=== PATIENT | female | born 1955 | race Caucasian/White ===

== ENCOUNTER → 2017-07-30 | Outpatient (CLI) | payer OTHER | END | disposition home or self-care (01) | LOC: US 06:36 | DX: R10.11 Right upper quadrant pain (principal); R25.2 Cramp and spasm; R11.0 Nausea | CPT/HCPCS: 76705 ==

== ENCOUNTER → 2017-08-10 | Outpatient (CLI) | payer OTHER ==
[2017-08-10] MEDS: SINCALIDE IV (10:56)
[2017-08-10] MEDS: NORMAL SALINE IV (10:56)
== END | disposition home or self-care (01) ==
LOC: NM 08:07
DX: R10.11 Right upper quadrant pain (principal); R42 Dizziness and giddiness; R11.0 Nausea
CPT/HCPCS: 78226; 96374; 96375; A9537; J2805

== ENCOUNTER → 2018-02-14 | Day surgery (SDC) | payer OTHER ==
[~2018-02-14] MED LIST: ALPR0.254 PO; AMLO10TA6 PO; ASPI-630 PO; BYSTOLIC10 MG PO; CETI10TA22 PO; FURO-69 PO; GABA-586 PO; IV RINGERS,LACTATED 1000ML 1,000 ML IV SCH; LEVO50TA PO; LIDOCAINE 1% PF 2 ML VIAL. ID PRN; LOSA100T7 PO; METF850T8 PO; MIDAZOLAM HCL/PF 2 MG/2 ML VIAL. IV PRN; PIOG15TA42 PO; POTA10TA12 PO; PROPOFOL 60 ML IV ONE; SITA100T PO; fentaNYL PF VIAL 100 MCG/2 ML VIAL IV PRN
[2018-02-14 10:44] VITALS: BP 142/73
--- NOTE | 2018-02-18 08:06 | PATHOLOGY ---
[facility] Accession Number: [id number] . 01 Material submitted: . PART A: SMALL BOWEL PART B: GASTRIC ANTRUM PART C: DISTAL ESOPHAGUS PART D: SIGMOID POLYPS . 01 Clinician provided ICD-10: n . 01 Clinical history: . None provided . 02 Diagnosis: A. Small bowel biopsies: - No significant pathologic abnormalities. . B. Gastric biopsy, antrum: - Chronic gastritis, mild, with small focus of intestinal metaplasia. . C. Esophageal biopsies, distal esophagus: - Segments of hyperplastic squamous esophageal mucosa with contiguous and separate segments of gastric mucosa showing chronic inflammation, consistent with reflux esophagitis. . D. Colon biopsies, sigmoid colon polyps: - Hyperplastic polyps. . (JPM:vjm;02/15/2018) AGA/02/18/2018 . 02 Comment: Sections of the small bowel biopsy reveal segments of duodenal and small intestinal mucosa. Where best oriented, the mucosal villi show no sprue-like changes or significant inflammatory changes. Sections of the gastric antral biopsy show congestion and patchy mild chronic inflammation with a small focus of intestinal metaplasia. A properly controlled immunoperoxidase stain for Helicobacter is negative for Helicobacter organisms. Sections of the distal esophageal biopsy reveal segments of tangentially-oriented, hyperplastic squamous esophageal mucosa with focally contiguous and separate segments of gastric mucosa showing mild to moderate chronic inflammation. The findings are consistent with reflux esophagitis. There is no evidence of Balderas's change, dysplasia, or malignancy. Sections of the sigmoid colon biopsies reveal hyperplastic polyps. There are no adenomatous changes or evidence of malignancy. . . (JPM:vjm;02/15/2018) . . Special stain performed: Immunoperoxidase stain for Helicobacter on B1. . 02 Electronically signed: . Ernie Segura MD, Pathologist NPI- [id number] . 01 Gross description: . A. Received in formalin labeled "Shalini Viera, small bowel," are 4 segments of mc soft tissue measuring 1.0 x 0.9 x 0.3 cm in aggregate dimensions and ranging from 0.2 to 0.6 cm in maximum dimension. The specimen is submitted entirely in cassette A1. . B. Received in formalin labeled "Shalini Viera, gastric antrum," is a single segment of mc soft tissue measuring 0.6 cm in maximum dimension. The specimen is entirely submitted in cassette B1. . C. Received in formalin labeled "Aylin, Shalini, distal esophagus," are 3 segments of mc soft tissue measuring 0.9 x 0.4 x 0.2 cm in aggregate dimensions and ranging from 0.3 to 0.5 cm in maximum dimension. The specimen is submitted entirely in cassette C1. . D. Received in formalin labeled "Shalini Viera, sigmoid polyps," are 7 segments of mc soft tissue measuring 1.8 x 0.9 x 0.3 cm in aggregate dimensions and ranging from 0.2 to 0.4 cm in maximum dimension. The specimen is submitted entirely in cassette D1. (TSD; 02/14/2018) TOB/TOB . 02 Pathologist provided ICD-10: K29.50, K21.0, K63.5 . 02 CPT . 078621, 694484, 976102, 136478, [id number] Specimen Comment: A courtesy copy of this report has been sent to Specimen Comment: [phone], . Specimen Comment: Report sent to / DR BAPTISTE Specimen Comment: A duplicate report has been generated due to demographic updates. Performed at: 01 [facility] [address], [place] [id number] MD Christophe York MD Phone: [phone] Performed at: 02 [facility] [address] [place], [place] [id number] MD Ernie Segura MD Phone: [phone]
== END | disposition home or self-care (01) ==
LOC: ENDOS 08:39
PROVIDERS: ATTEND Internal Medicine Gastroenterology
DX: K64.0 First degree hemorrhoids (principal); K63.5 Polyp of colon; K21.0 Gastro-esophageal reflux disease with esophagitis; K29.50 Unspecified chronic gastritis without bleeding; K31.89 Other diseases of stomach and duodenum; I10 Essential (primary) hypertension; E11.9 Type 2 diabetes mellitus without complications; E03.9 Hypothyroidism, unspecified; E78.00 Pure hypercholesterolemia, unspecified; Z83.3 Family history of diabetes mellitus; Z80.0 Family history of malignant neoplasm of digestive organs; Z82.49 Family history of ischemic heart disease and other diseases of the circulatory system; Z72.89 Other problems related to lifestyle; Z79.899 Other long term (current) drug therapy; Z79.84 Long term (current) use of oral hypoglycemic drugs; Z90.710 Acquired absence of both cervix and uterus; Z98.890 Other specified postprocedural states; E66.01 Morbid (severe) obesity due to excess calories; Z68.43 Body mass index [BMI] 50.0-59.9, adult
CPT/HCPCS: 43239; 45380; 88305; 88342; J2704

== ENCOUNTER → 2018-06-14 | Outpatient (CLI) | payer OTHER ==
[2018-02-14 10:44] VITALS: BP 142/73
[~2018-06-14] MED LIST changes: -AMLO10TA6 PO; +AMLO10TA8 PO; -GABA-586 PO; +GABA300C18 PO; -IV RINGERS,LACTATED 1000ML 1,000 ML IV SCH; -LIDOCAINE 1% PF 2 ML VIAL. ID PRN; +LOSA100T14 PO; -LOSA100T7 PO; -MIDAZOLAM HCL/PF 2 MG/2 ML VIAL. IV PRN; -PROPOFOL 60 ML IV ONE; -fentaNYL PF VIAL 100 MCG/2 ML VIAL IV PRN
--- NOTE | 2018-06-17 15:56 | KCIC ---
Bilateral digital screening mammograms: Reason for examination: Routine screening. Comparison is made to previous study dated 04/27/2015. Interpretation is made with the benefit of CAD. The skin and nipples show no abnormalities. No abnormal lymph nodes are seen. The breast parenchyma is predominantly fatty. (Breast density: Category A.) There are no dominant masses, suspicious calcifications or architectural distortions. Impression: No evidence of malignancy. Recommend routine screening. BI-RADS Category 1: Negative. "Our facility is accredited by the [employer] Mammography Program." This patient's information has been entered into a reminder system for the patient to be notified with the results of her examination and a target date for the next mammogram. Electronically signed by: Oxana Block MD (06/17/2018 3:52 PM) [id number]
== END | disposition home or self-care (01) ==
LOC: KCIC MAMMO 14:07
DX: Z12.31 Encounter for screening mammogram for malignant neoplasm of breast (principal)
CPT/HCPCS: 77067

== ENCOUNTER → 2019-03-14 | Outpatient (CLI) | payer MEDICARE, OTHER ==
[2018-02-14 10:44] VITALS: BP 142/73
[~2019-03-14] MED LIST changes: -POTA10TA12 PO; +POTASSIUM CHLO10 ME1 PO
--- NOTE | 2019-03-14 16:18 | KCIC ---
EXAM: Dual energy x-ray absorptiometry (DEXA). HISTORY: Postmenopausal female presents for osteoporosis screening. COMPARISON: None. TECHNIQUE: Dual energy x-ray absorptiometry of the lumbar spine and left hip was performed. Calculation of bone mineral density based on standard deviations above or below the expected young adult normal value (T-score) was completed. FINDINGS: The average bone mineral density in the 1st through 4th lumbar vertebrae is 1.315 g/cmxcm, corresponding with a T-score of 2.4. The average total bone mineral density in the left hip is 1.055 g/cmxcm, corresponding with a T-score of 0.9. IMPRESSION: Normal bone mineral density. Note: Definitions established by the World Health Organization: 1. Normal: T-score is -1.0 or above. 2. Osteopenia: T-score is between -1.0 and -2.5 . 3. Osteoporosis: T-score is -2.5 or below. Electronically signed by: Mckenzie Jaquez MD (03/14/2019 4:14 PM) [place] [id number]
== END | disposition home or self-care (01) ==
LOC: KCIC DEXA 14:37
DX: Z13.820 Encounter for screening for osteoporosis (principal); E05.90 Thyrotoxicosis, unspecified without thyrotoxic crisis or storm; Z78.0 Asymptomatic menopausal state
CPT/HCPCS: 77080